=== PATIENT | female | born 1985 | race Caucasian/White ===

== ENCOUNTER 2024-06-01 08:12 | Emergency (ER) | payer MEDICAID, OTHER ==
[~2024-06-01] VITALS: Ht 152.4 cm; Wt 81.6 kg
[2024-06-01 08:20] VITALS: BP_SYST 136; PULSE 91; RESP 18; TEMP 98.3; O2SAT 98
[2024-06-01 08:57] LABS: BILIRUBIN,URINE 2+ (NEGATIVE); BLOOD, URINE NEGATIVE (NEGATIVE); CLARITY/URINE CLEAR (CLEAR); COLOR,URINE YELLOW (YELLOW); GLUCOSE,URINE TRACE (NEGATIVE); KETONES,URINE 3+ (NEGATIVE); LEUKOCYTE ESTERASE ,URINE NEGATIVE (NEGATIVE); NITRITE, URINE NEGATIVE (NEGATIVE); PH,URINE 6.5 (5.0-8.0); PROTEIN URINE 1+ (NEGATIVE)
[2024-06-01 09:06] LABS: WBC,URINE 0-3 /HPF (0-3)
[2024-06-01 09:07] LABS: BACTERIA,URINE FEW /HPF (None Seen)
[2024-06-01 09:08] LABS: MUCUS,URINE 1+ /LPF (None Seen)
[2024-06-01] MEDS: MAG HYDROX/AL HYDROX/SIMETH 30 ML, DICYCLOMINE HCL 20 MG, LIDOCAINE VISCOUS 2% 15ML (PO... PO ONE (09:36)
[2024-06-01 10:05] VITALS: BP_SYST 131; PULSE 75; RESP 16; TEMP 98.1; O2SAT 99
[2024-06-01] MEDS ORDERED: SUCR1ORA4 PO (10:08)
[2024-06-01] MEDS ORDERED: ANURH RC (10:08)
== END 2024-06-01 10:06 | disposition home or self-care (01) ==
LOC: SED 08:12
DX: K21.9 Gastro-esophageal reflux disease without esophagitis (principal); K64.8 Other hemorrhoids; Z88.2 Allergy status to sulfonamides; Z88.8 Allergy status to other drugs, medicaments and biological substances; Z79.899 Other long term (current) drug therapy
CPT/HCPCS: 81000; 81001; 81015; 81025; 99283; J2001